=== PATIENT | male | born 1950 | race Caucasian/White ===

== ENCOUNTER 2023-02-23 19:36 | Emergency (ER) | payer BC ==
[~2023-02-23] VITALS: Ht 175.3 cm; Wt 79.4 kg
[2023-02-23 19:36] VITALS: BP_SYST 182
[2023-02-23 21:20] VITALS: BP_SYST 161
== END 2023-02-23 21:21 | disposition home or self-care (01) ==
LOC: SED 19:36
DX: I10 Essential (primary) hypertension (principal); R00.2 Palpitations; Z79.899 Other long term (current) drug therapy
CPT/HCPCS: 99281

== ENCOUNTER 2024-05-27 22:30 | Emergency (ER) | payer BC ==
[2024-05-27 22:30] VITALS: BP_SYST 120; PULSE 92; RESP 20; TEMP 97.5; O2SAT 97
[2024-05-27] MEDS ORDERED: NIRM1TAB9 PO (22:52)
[2024-05-27 22:56] VITALS: BP_SYST 120; PULSE 88; RESP 18; TEMP 97.5; O2SAT 98
== END 2024-05-27 22:56 | disposition home or self-care (01) ==
LOC: SED 22:30
DX: U07.1 COVID-19 (principal); I10 Essential (primary) hypertension; Z79.899 Other long term (current) drug therapy
CPT/HCPCS: 99283